=== PATIENT | female | born 1935 | race Caucasian/White ===

== ENCOUNTER 2024-02-07 20:59 | Emergency (ER) | payer MEDICARE, BC, SELFPAY ==
[2024-02-07 20:59] VITALS: BMI 27.2
[2024-02-07 21:01] VITALS: BP 138/79
[2024-02-07 21:24] LABS: % Eosinophils 5.9 % (0-6); % Immature Granulocytes 0.2 % (0-0.5); % Lymphocytes 29.4 % (20.5-51.1); % Monocytes 8.4 % (1.7-9.3); % Neutrophils 55.1 % (42.2-75.2); Absolute Basophils 0.1 10^3/uL (0-0.2); Absolute Eosinophils 0.4 10^3/uL (0-0.7); Absolute Lymphocytes 1.8 10^3/uL (1.2-3.4); Absolute Monocytes 0.5 10^3/uL (0.1-0.6); Absolute Neutrophils 3.4 10^3/uL (1.4-6.5); Hematocrit 40.5 % (37.0-47.0); Hemoglobin 13.8 g/dL (12.0-16.0); Mean Corp Hgb Conc. 34.1 g/dL (33.0-37.0); Mean Corpuscular Hgb 30.3 pg (27.0-31.0); Mean Corpuscular Volume 88.8 fL (81.0-99.0); Mean Platelet Volume 10.9 fL (7.4-10.4); Nucleated Red Blood Cells % 0 %; Platelet Count 241 10^3/uL (130-400); Red Blood Cell Count 4.56 10^6/uL (4.20-5.40); Red Cell Dist. Width 11.8 % (11.5-14.5); White Blood Cell Count 6.1 10^3/uL (4.8-10.8)
[2024-02-07 21:39] LABS: ALT (SGPT) < 10 U/L (0-35); AST (SGOT) 28 U/L (14-36); Albumin 4.4 g/dl (3.5-5.0); Alkaline Phosphatase 84 U/L (38-126); Blood Urea Nitrogen 12 mg/dl (7-17); Calcium 9.9 mg/dl (8.4-10.2); Carbon Dioxide 32 mmol/L (22-30); Chloride 101 mmol/L (98-107); Glucose 147 mg/dl (70-99); Potassium 3.9 mmol/L (3.5-5.1); Sodium 142 mmol/L (135-145); Total Bilirubin 0.4 mg/dl (0.2-1.3); Total Protein 6.9 g/dl (6.3-8.2); eGFR > 60.00
[2024-02-07 22:12] VITALS: BP 186/84
[2024-02-07 22:30] VITALS: BP 190/85
[2024-02-07 23:16] VITALS: BP 182/82
--- NOTE | 2024-02-07 23:24 | ED.GENMED ---
History of Present Illness
General
Chief Complaint: Blood Pressure Problem
Source: patient and family
Exam Limitations: none
Time Seen by Provider: 02/07/24 23:01
Nursing documentation reviewed up to this point in time: agreed with
History of Present Illness
History of Present Illness:
89-year-old female who presents with high blood pressure. She states that for the last week and a half she has been having elevated blood pressure. She knows when her blood pressure is elevated because she gets 'shaky '. Family noticed that she
received a different looking Catapres pill at her last prescription refill. Patient states that her symptoms started when the Catapres pill was different. Denies any current symptoms at this time. Denies any current shortness of breath but has
noted some brief episodes of shortness of breath. Denies any leg swelling. Reports no headache or chest pressure.
Past History
Past History
ED Past Medical History: HTN and Other (Diverticulosis )
Social History
Tobacco: Non-smoker
Alcohol: None
Family History
Family History: Negative Diabetes, Hypertension or CAD
Review of Systems
Review of Systems
Allergies reviewed?: Yes
Other source history: family
All Other Systems: ROS reviewed and negative except as documented in HPI and ROS
Constitutional: Reports no symptoms
EENT: Reports no symptoms
Respiratory: Reports no symptoms
Cardiac: Reports no symptoms
ABD/GI: Reports no symptoms
: Reports no symptoms
Musculoskeletal: Reports no symptoms
Skin: Reports no symptoms
Neurological: Reports other (Shakiness); Denies headache
Endocrine: Reports no symptoms
Hematologic/Lymphatic: Reports no symptoms
Psychiatric: Reports anxiety
Phy Exam
General Physical Exam
General Presentation: well appearing and no apparent distress
General age: appears stated age
General Skin: warm
General Habitus: elderly
General Mental: alert
General Hydration: appears well hydrated
ENT Exam
ENT Exam: EOMI, pharynx normal, neck supple and normocephalic
Eye Exam
Eye Exam: PERRL, cornea clear and conjunctiva normal
Cardiovascular Exam
Cardiovascular Exam: regular rate/rhythm, no edema, no murmur and normal peripheral pulses
Pulmonary Exam
Pulmonary Exam: lungs clear, no respiratory distress, no rales, no crackles, no rhonchi, no stridor, no wheezing and no cough
Gastrointestinal Exam
Gastrointestinal Exam: normal bowel sounds, non tender, soft, no organomegaly, no pulsatile mass and non distended
Neurological Exam
Neurological Exam: alert, oriented x3, no motor deficits and speech normal
Musculoskeletal Exam
Musculoskeletal Exam: full ROM and no edema
Skin Exam
Skin Exam: normal color, warm/dry, no rash and no petechia
Psychiatric Exam
Psychiatric Exam: normal mood/affect
Course
Orders/Labs/Results
Orders:
Orders
02/07/24 21:03
ECG [Electrocardiogram (*1)] Urgent
Reason for Study: Fatigue / Weakness
02/07/24 21:04
EKG- Treatment ONCE
02/07/24 21:11
CMP [Comprehensive Metabolic Panel] Urgent
Complete Blood Count/With Diff Urgent
02/07/24 23:23
Clonidine [Catapres] 0.1 mg PO NOW STA
02/07/24 23:27
NT-proBNP Urgent
Troponin I Urgent
02/07/24 23:58
Urinalysis Reflex To Culture Urgent
Date Specimen was Collected: 02/07/24
Time Specimen was Collected: 23:58
02/08/24 00:21
CR Chest - 2 Views Urgent
Comment:
Reason For Exam: chest pain
Abnormal Lab Results
02/07/24
21:11
MPV 10.9 H fL
(7.4-10.4)
Carbon Dioxide 32 H mmol/L
(22-30)
Glucose 147 H mg/dl
(70-99)
02/07/24 21:11
02/07/24 21:11
Vital Signs
Initial and Last Documented VS:
Initial Vital Signs
Temp Pulse Resp BP Pulse Ox
98.1 F 73 19 138/79 94
02/07/24 21:01 02/07/24 21:01 02/07/24 21:01 02/07/24 21:01 02/07/24 21:01
Last Documented Vital Signs
Temp Pulse Resp BP Pulse Ox
98.1 F 67 16 155/77 92
02/07/24 21:01 02/08/24 01:29 02/08/24 01:29 02/08/24 01:29 02/08/24 01:29
*Critical Care Note
Total Time (30-74mins, 75-104mins- exclusive of procedures): Not Applicable
Update Note
Update Note:
She feels much better. No acute distress. I will provide a prescription for Catapres. 0.1 mg p.o. twice daily dispense as written. Patient is convinced that the generic version is distress.
ED Attending Note
-
Portions of this chart may have been created with voice recognition software.� Occasional wrong word or��sound alike� substitutions may have occurred due to the inherent limitations of voice recognition software.
Discharge Plan
Departure
Patient Disposition: Home (Routine Discharge)
Date of Disposition: 02/08/24
Time of Disposition: 01:58
Patient with high blood pressure during this ER visit?: Yes
Condition: Good
Discharge Problem:
High blood pressure
Instructions: High Blood Pressure (DC), BLOOD PRESSURE
Prescriptions:
New
clonidine HCl 0.1 mg tablet extended release 12 hr
0.1 mg PO BID Qty: 20 0RF
No Action
clonidine HCl 0.1 MG tablet
0.1 mg PO BID
pravastatin 40 MG tablet
40 mg PO .PM
Multivitamin
1 tab PO DAILY
pantoprazole 40 MG tablet,delayed release (DR/EC)
40 mg PO DAILY
sertraline 25 MG tablet
25 mg PO .PM
clopidogrel 75 MG tablet
75 mg PO DAILY
celecoxib 200 mg Capsule
200 mg PO DAILY
torsemide 20 mg Tablet
20 mg PO DAILY
Januvia 100 mg Tablet
100 mg PO DAILY
Prevagen
1 tab PO DAILY
amlodipine-benazepril 10-40 mg Capsule
1 cap PO DAILY
Referrals:
UNKNOWN - PT DOES,NOT KNOW [Family Provider] -
Interventions
Interventions:
*Risk Screen - Suicide Last Done: 02/07/24 21:01
*General Assessment Last Done: 02/07/24 21:01
*Neglect/Abuse Screening Last Done: 02/07/24 21:01
ED- Fall Risk Assessment Last Done: 02/07/24 22:09
ED- Cardiac Assessment Last Done: 02/07/24 22:09
ED- Neurological Assessment Last Done: 02/07/24 22:09
ED- Pulmonary Assessment Last Done: 02/07/24 22:09
Discharge Date and Time
Print Language: [place]
[2024-02-07] MEDS: CATAPRES 0.1 MG PO (23:50)
[2024-02-08 00:15] LABS: NT-proBNP 103 pg/ml; Troponin I < 0.012 ng/ml
[2024-02-08 00:30] VITALS: BP 167/73
[2024-02-08 00:56] LABS: Urine Albumin Negative (Neg - Trace); Urine Bilirubin Negative (Negative); Urine Character Very Cloudy (Clear); Urine Color Yellow; Urine Glucose Negative (Negative); Urine Ketone Negative (Negative); Urine Leukocyte Negative (Negative); Urine Nitrite Negative (Negative); Urine Occult Blood Negative (Negative); Urine Urobilinogen Negative (Neg - 1+)
[2024-02-08 01:28] VITALS: BP 155/77
[2024-02-08 01:29] VITALS: BP 155/77
== END 2024-02-08 02:25 | disposition home or self-care (01) ==
LOC: EMR 20:59
PROVIDERS: Emergency Medicine; EMERGENCY PHYSICIAN Student in an Organized Health Care Education/Training Program
DX: I10 Essential (primary) hypertension (principal)
CPT/HCPCS: 99285; 71046; 80053; 81003; 83880; 84484; 85025; 93005

== ENCOUNTER 2024-02-10 22:00 | Emergency (ER) | payer MEDICARE, BC, SELFPAY ==
[2024-02-10 22:03] VITALS: BP 209/88
[2024-02-10 22:25] LABS: % Basophils 0.9 % (0-2); % Eosinophils 6.9 % (0-6); % Immature Granulocytes 0.2 % (0-0.5); % Monocytes 8.1 % (1.7-9.3); % Neutrophils 54.9 % (42.2-75.2); Absolute Basophils 0.1 10^3/uL (0-0.2); Absolute Eosinophils 0.4 10^3/uL (0-0.7); Absolute Lymphocytes 1.7 10^3/uL (1.2-3.4); Absolute Monocytes 0.5 10^3/uL (0.1-0.6); Absolute Neutrophils 3.2 10^3/uL (1.4-6.5); Hematocrit 42.2 % (37.0-47.0); Hemoglobin 14.4 g/dL (12.0-16.0); Mean Corp Hgb Conc. 34.1 g/dL (33.0-37.0); Mean Corpuscular Volume 87.9 fL (81.0-99.0); Mean Platelet Volume 10.6 fL (7.4-10.4); Nucleated Red Blood Cells % 0 %; Platelet Count 224 10^3/uL (130-400); Red Cell Dist. Width 11.6 % (11.5-14.5); White Blood Cell Count 5.8 10^3/uL (4.8-10.8)
[2024-02-10 22:40] VITALS: BMI 27.1
[2024-02-10 22:42] LABS: ALT (SGPT) < 10 U/L (0-35); AST (SGOT) 29 U/L (14-36); Albumin 4.5 g/dl (3.5-5.0); Alkaline Phosphatase 86 U/L (38-126); Blood Urea Nitrogen 16 mg/dl (7-17); Calcium 9.8 mg/dl (8.4-10.2); Carbon Dioxide 31 mmol/L (22-30); Chloride 101 mmol/L (98-107); Glucose 114 mg/dl (70-99); Potassium 4.1 mmol/L (3.5-5.1); Sodium 141 mmol/L (135-145); Total Bilirubin 0.5 mg/dl (0.2-1.3); Total Protein 7.2 g/dl (6.3-8.2); eGFR > 60.00
[2024-02-10 22:49] VITALS: BP 197/69
[2024-02-10 22:50] LABS: Troponin I < 0.012 ng/ml
[2024-02-10 23:00] VITALS: BP 195/81
[2024-02-10 23:30] VITALS: BP 193/73
[2024-02-11] VITALS: BP 167/72
--- NOTE | 2024-02-11 02:29 | ED.GENMED ---
History of Present Illness
General
Chief Complaint: Blood Pressure Problem
Source: patient and family
Exam Limitations: none
Time Seen by Provider: 02/10/24 23:29
Nursing documentation reviewed up to this point in time: agreed with
History of Present Illness
History of Present Illness:
89-year-old female with history as documented returns to the emergency room for high blood pressure. She was here few days ago with hypertension, was seen and discharged. She takes clonidine to manage her blood pressure�she has been on clonidine
immediate release 0.1 mg twice daily for quite some time. Apparently there was a recent issue where the pharmacist refilled her prescription with a clonidine pill from a different balance bridge inspector. Patient seems to think that since she made the switch
about a week ago her blood pressures have been running much higher than usual. She says that when her blood pressure is high she gets jittery and shaky and daughter says she seems to be a bit more foggy/confused. In the ER a few days ago attempt
to refill prescription with patient's old clonidine balance bridge inspector but patient says that when she picked it up it was still the wrong pill. Today her blood pressures are still running high despite taking this newly prescribed pill and so she came
back to the ER. Fortunately by the time of my assessment her blood pressure has trended downward. She is completely asymptomatic assessment. She says she does not have a never has any chest pain, headache, vision changes, speech difficulties,
focal weakness or numbness in her extremities.
Past History
Past History
ED Past Medical History: HTN and Other (Diverticulosis )
Social History
Tobacco: Non-smoker
Alcohol: None
Family History
Family History: Negative Diabetes, Hypertension or CAD
Review of Systems
Review of Systems
All Other Systems: ROS reviewed and negative except as documented in HPI and ROS
Respiratory: Denies trouble breathing
Cardiac: Denies chest pain
ABD/GI: Denies abdominal pain
Neurological: Reports other (Shakiness/jitteriness); Denies dizzy, headache, weakness or numbness
Phy Exam
Physical Exam
Physical Exam:
General: Awake, alert, oriented x3; no acute distress
Head: Normocephalic, atraumatic
Eyes: Conjunctiva normal, EOMI
Throat: Airway intact, handling secretions
Neck: Trachea midline, supple without meningismus
Lungs: Clear to auscultation bilaterally, no wheezing, rales, rhonchi
Heart: Regular rate and rhythm, no murmurs, gallops, or rubs
Abd: Soft, non distended, nontender
Neuro: Cranial nerves intact, speech fluid, no motor or sensory deficits, ambulatory without ataxia
Skin: no rash
Extremities: No edema in extremities, equal pulses in all extremities
Scores
Heart Failure Risk
Heart Failure Risk Score: Not Applicable
Heart Score for Chest Pain Patients
STEMI patient?: Not applicable
Withdrawal Assessment of Alcohol
Withdrawal Assessment Completed?: Not applicable
Course
Orders/Labs/Results
Orders:
Orders
02/10/24 22:07
ECG [Electrocardiogram (*1)] Urgent
Reason for Study: Hypertension, Benign
EKG- Treatment ONCE
02/10/24 22:20
Complete Blood Count/With Diff Urgent
Comprehensive Metabolic Panel Urgent
Troponin I Urgent
Abnormal Lab Results
02/10/24
22:20
MPV 10.6 H fL
(7.4-10.4)
Eosinophils % 6.9 H %
(0-6)
Carbon Dioxide 31 H mmol/L
(22-30)
Glucose 114 H mg/dl
(70-99)
02/10/24 22:20
02/10/24 22:20
Vital Signs
Initial and Last Documented VS:
Initial Vital Signs
Temp Pulse Resp BP Pulse Ox
36.7 C 71 20 209/88 98
02/10/24 22:03 02/10/24 22:03 02/10/24 22:03 02/10/24 22:03 02/10/24 22:03
Last Documented Vital Signs
Temp Pulse Resp BP Pulse Ox
36.7 C 66 21 167/72 93
02/10/24 22:03 02/10/24 23:59 02/10/24 23:59 02/11/24 00:00 02/10/24 23:59
MDM/Problems Addressed
Differential Diagnosis Includes:
Hypertension
MDM/Problems Addressed:
89-year-old female presents again to the emergency room for hypertension. She is quite adamant that her blood pressures have been spiking since there was a switching balance bridge inspector from her normal clonidine�she says that her pill is normally a small
pink pill and she has been refilled with a small white pill which is not managing her blood pressure well. When she spikes very high with a blood pressure she said she gets shaky and jittery. Her blood pressure is improved during her time in the
ER and she is asymptomatic. She had screening labs in triage and a screening EKG which were unremarkable. I had a long discussion with the patient her primary concern is getting the appropriate balance bridge inspector for her clonidine pill. Previous visit
was prescribed clonidine but it was the extended release and she is supposed to be on immediate release by a specific balance bridge inspector she says. I called [facility] pharmacy to sort this issue out�I read the serial number for patient's old prescription, they
carry this pill and will fill the prescription with the appropriate medicine and patient can pick it up tonight. Patient was very grateful. Stable for discharge all questions answered.
Chronic conditions affecting care:
Hypertension
Acute Exacerbation and/or Progression of Chronic Illness:
Acutely hypertensive
Acute Exacerbation and/or Progression of Chronic Illness: HTN
*Pulse Oximetry
Patient hypoxic: no
*EKG
Interpreted by ED Provider?: Yes
Heart Rate: 66
Rate: normal
Rhythm: sinus
[place]: left axis deviation
Interval: normal interval
QRS Pattern: left vent hypertrophy
Ischemia: non-specific ST changes
*Critical Care Note
Total Time (30-74mins, 75-104mins- exclusive of procedures): Not Applicable
Data Reviewed
Review of Other/Old Records Reveals: Labs and Records
Source: patient and family
Patient Management
Discussion with other providers: Other (Discussed with pharmacist at [facility])
ED Attending Note
-
Portions of this chart may have been created with voice recognition software.� Occasional wrong word or��sound alike� substitutions may have occurred due to the inherent limitations of voice recognition software.
Discharge Plan
Departure
Patient Disposition: Home (Routine Discharge)
Date of Disposition: 02/11/24
Time of Disposition: 00:51
Patient with high blood pressure during this ER visit?: Yes
Discharge Problem:
Hypertension
Instructions: High Blood Pressure (DC)
Prescriptions:
New
clonidine HCl 0.1 mg tablet
0.1 mg PO BID Qty: 60 0RF
No Action
clonidine HCl 0.1 MG tablet
0.1 mg PO BID
pravastatin 40 MG tablet
40 mg PO .PM
Multivitamin
1 tab PO DAILY
pantoprazole 40 MG tablet,delayed release (DR/EC)
40 mg PO DAILY
sertraline 25 MG tablet
25 mg PO .PM
clopidogrel 75 MG tablet
75 mg PO DAILY
celecoxib 200 mg Capsule
200 mg PO DAILY
torsemide 20 mg Tablet
20 mg PO DAILY
Januvia 100 mg Tablet
100 mg PO DAILY
Prevagen
1 tab PO DAILY
amlodipine-benazepril 10-40 mg Capsule
1 cap PO DAILY
clonidine HCl 0.1 mg tablet extended release 12 hr
0.1 mg PO BID Qty: 20 0RF
Referrals:
NONE,* [Family Provider] -
Activity Restrictions/Additional Instructions:
[facility]
[address] [place], [place] [address] [address]
Interventions
Interventions:
*Risk Screen - Suicide Last Done: 02/10/24 22:03
*General Assessment Last Done: 02/10/24 22:03
*Neglect/Abuse Screening Last Done: 02/10/24 22:03
*Nursing Disposition Last Done: 02/11/24 01:08
ED- Cardiac Assessment Last Done: 02/10/24 22:40
ED- Neurological Assessment Last Done: 02/10/24 22:40
ED- Pulmonary Assessment Last Done: 02/10/24 22:40
Discharge Date and Time
Discharge Date/Time: 02/11/24 01:09
Print Language: [place]
== END 2024-02-11 01:09 | disposition home or self-care (01) ==
LOC: EMR 22:00
PROVIDERS: Emergency Medicine; EMERGENCY PHYSICIAN Emergency Medicine
DX: I10 Essential (primary) hypertension (principal)
CPT/HCPCS: 99284; 80053; 84484; 85025; 93005; 99285